=== PATIENT | male | born 1980 | race Caucasian/White ===

== ENCOUNTER 2017-02-16 13:53 | Emergency (ER) | payer MEDICAID ==
[~2017-02-16] VITALS: Ht 162.6 cm; Wt 92.5 kg
[2017-02-16 14:08] VITALS: Ht 162.6 cm; Wt 92.5 kg
[2017-02-16] MEDS ORDERED: TETRACAINE 0.5% 4 ML OPH LEFT EYE SCH (15:00)
[2017-02-16] MEDS ORDERED: FLUORESCEIN STRIP LEFT EYE ONE (15:00)
[2017-02-16] MEDS ORDERED: POLY10DR19 LEFT EYE (15:30)
[2017-02-16] MEDS ORDERED: OPHTHALMIC IRRIG SOLUTION 120 ML ONE (15:34)
--- NOTE | 2017-02-16 15:38 | ERD ---
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 Reports that he has been scratching his left eye due to the irritation. Denies wearing any contacts or glasses. Denies any blurred vision or vision loss. States that he still has some residual effects of dust or drywall in his left eye but tried to remove with water. Denies any fever, chills, headache, nausea, vomiting. ROS All systems reviewed and are negative except as per history of present illness. Medications Home Meds Active Scripts Polymyxin B Sulfate-TMP* (Polymyxin B-TMP Eye Drops*) 10 Ml Drops, 1 DROP LEFT EYE QID for 7 Days, EA Prov:GERARDO GOMEZ PA-C 02/16/17 Allergies Allergies: Coded Allergies: No Known Allergy (Unverified , 05/26/14) PMhx/Soc History of Surgery: No Anesthesia Reaction: No Hx Neurological Disorder: No Hx Respiratory Disorders: No Hx Cardiac Disorders: No Hx Psychiatric Problems: No Hx Miscellaneous Medical Probl: No Hx Alcohol Use: Yes Hx Substance Use: No Hx Tobacco Use: No Smoking Status: Former smoker Physical Exam Vitals Vital Signs Date Time Temp Pulse Resp B/P Pulse Ox O2 Delivery O2 Flow Rate FiO2 02/16/17 14:08 92.5 63 18 119/67 97 Physical Exam Const: Tgg-[id number]-kuznwuwel, well-nourished. In no acute distress. Head: Atraumatic, normocephalic Eyes: Right normal conjunctiva without injection. Left conjunctiva with slight injection noted. No foreign bodies noted. No purulent discharge. PERRLA. EOMI ENT: Normal external ear. Ear canal without erythema. Tympanic membrane pearly dubose without effusion or bulging. Nasal canal clear with normal turbinates. Moist oropharynx without tonsillar exudates. Non-erythematous pharynx. Uvula midline. No drooling. No trismus. Neck: No cervical midline tenderness. Full range of motion. No meningismus. No cervical lymphadenopathy. No JVD. Resp: Clear to auscultation bilaterally. No wheezing, rhonchi, rales, or crackles. No accessory muscle use. No retractions. Cardio: Regular rate and rhythm. No murmurs, rubs or gallops. Abd: Soft, non tender, non distended. Normal bowel sounds. No palpable masses. No rebound tenderness. No guarding. Negative McBurney's Point. Negative Freeman's Sign. Skin: Normal skin turgor. No petechiae or rashes Back: No midline tenderness. No CVA tenderness. Ext: No cyanosis, or edema. Distal pulses intact bilaterally. Neur: Awake and alert. Normal gait. Normal coordination. Cranial Nerves II- VII intact. Normal finger to nose. Muscle strength 5/5. Sensation intact. Psych: Normal Mood and Affect Results 24 hrs Current Medications Medications (Trade) Dose Ordered Sig/Lizzeth Route PRN Reason Start Time Stop Time Status Last Admin Dose Admin Tetracaine HCl (Tetracaine 0.5% Steri-Unit Kate) 1 drop ONCE LEFT EYE 02/16/17 15:00 02/16/17 16:29 DC Fluorescein Sodium (Whyle-F-Ootio) 1 strip ONCE ONCE LEFT EYE 02/16/17 15:00 02/16/17 15:01 DC Irrigating Solution (Eye Wash) 1 applic ONCE ONCE LEFT EYE 02/16/17 16:00 02/16/17 16:01 DC Irrigating Solution (Eye Wash) 1 applic STK-MED ONCE .ROUTE 02/16/17 15:34 02/16/17 15:35 DC Procedures/MDM 36-year-old male patient with a significant past medical history presents the ED complaining of left eye irritation due to possible residual drywall that may have gotten into his left eye. Patient did not wear protective eyeglasses. Patient is afebrile nontoxic appearing. Patient has normal vital signs. Eye Exam w/ Wood's lamp: Visual Acuity: L 20/50 R 20/70 Bilateral 20/30 Visual Baeza: Intact in all four quadrants bilaterally Lac ducts/glands: No swelling Lids w/ evertion: Normal, no foreign body Conj/Social Circle: Clear, slight inferior linear 1 cm corneal fluorescein uptake. No Aakash's sign. Patient's ocular symptoms have stabilized while they have been evaluated in the department and are appropriate for outpatient work up. Patient may have slight corneal abrasion vs. ulcer noted of left eye. Low suspicion for ruptured globe , retinal detachment, periorbital cellulitis, acute angle closure glaucoma, deep space infection, iritis, traumatic hyphema, conjunctivitis, subconjunctival hemorrhage, pterygium, hypopyon, blepharitis, hordeolum, chalazion, or other emergent conditions. Strictly instructed patient to follow up with an synthetic filament spinner within 24 hours. Instructed patient to return to the ED for any worsening symptoms. Patient is hemodynamically stable. Patient's questions were answered. Patient understood and agreed with discharge plan. Discharge medications: Polytrim Instructed patient to return to the ED sooner for any worsening symptoms. Patient's questions were answered. Patient understood and agreed with discharge plan. Patient discharged stable. Departure Diagnosis: Primary Impression: Left eye injury Encounter type: initial encounter Qualified Code: S05.92XA - Left eye injury , initial encounter Condition: Stable Patient Instructions: Corneal Injury Referrals: [facility] YOU HAVE RECEIVED A MEDICAL SCREENING EXAM AND THE RESULTS INDICATE THAT YOU DO NOT HAVE A CONDITION THAT REQUIRES URGENT TREATMENT IN THE EMERGENCY DEPARTMENT. FURTHER EVALUATION AND TREATMENT OF YOUR CONDITION CAN WAIT UNTIL YOU ARE SEEN IN YOUR DOCTORS OFFICE WITHIN THE NEXT 1-2 DAYS. IT IS YOUR RESPONSIBILITY TO MAKE AN APPOINTMENT FOR FOLOW-UP CARE. IF YOU HAVE A PRIMARY DOCTOR --you should call your primary doctor and schedule an appointment IF YOU DO NOT HAVE A PRIMARY DOCTOR YOU CAN CALL OUR PHYSICIAN REFERRAL HOTLINE AT IF YOU CAN NOT AFFORD TO SEE A PHYSICIAN YOU CAN CHOSE FROM THE FOLLOWING [facility] CLINICS [facility] [address] [facility]. [facility] [address] [facility] [facility] [address] [facility] [facility] [address] [facility] [facility] [address] [facility]. [facility]. [address] [facility]. [facility] YOU HAVE RECEIVED A MEDICAL SCREENING EXAM AND THE RESULTS INDICATE THAT YOU DO NOT HAVE A CONDITION THAT REQUIRES URGENT TREATMENT IN THE EMERGENCY DEPARTMENT. FURTHER EVALUATION AND TREATMENT OF YOUR CONDITION CAN WAIT UNTIL YOU ARE SEEN IN YOUR DOCTORS OFFICE WITHIN THE NEXT 1-2 DAYS. IT IS YOUR RESPONSIBILITY TO MAKE AN APPOINTMENT FOR FOLOW-UP CARE. IF YOU HAVE A PRIMARY DOCTOR --you should call your primary doctor and schedule and appointment IF YOU DO NOT HAVE A PRIMARY DOCTOR YOU CAN CALL OUR PHYSICIAN REFERRAL HOTLINE AT . IF YOU CAN NOT AFFORD TO SEE A PHYSICIAN YOU CAN CHOSE FROM THE FOLLOWING [facility] INSTITUTIONS: [facility] [address] [place] [address] [facility] [address] [place] [address] [facility] + [facility] [address] [place] [address] [facility] URGENT CARE/SPECIALTIES Additional Instructions: FOLLOW UP WITH OPTHALMOLOGIST WITHIN 24 HOURS.Return to this facility if you are not improving as expected - vision loss, fever, etc. GERARDO GOMEZ PA-C Feb 16, 2017 15:38
[2017-02-16] MEDS ORDERED: OPHTHALMIC IRRIG SOLUTION 120 ML LEFT EYE ONE (16:00)
== END 2017-02-16 16:29 | disposition home or self-care (01) ==
LOC: FTE 13:53
DX: S05.92XA Unspecified injury of left eye and orbit, initial encounter (principal); W20.8XXA Other cause of strike by thrown, projected or falling object, initial encounter; Y92.9 Unspecified place or not applicable; Z87.891 Personal history of nicotine dependence
CPT/HCPCS: Z7502; Z7610; 99283

== ENCOUNTER 2017-05-01 10:56 | Emergency (ER) | payer MEDICAID ==
[~2017-05-01] VITALS: Ht 180.3 cm; Wt 98.6 kg
[~2017-05-01 10:56] MED LIST: POLY10DR19 LEFT EYE
[2017-05-01 10:59] VITALS: Ht 180.3 cm; Wt 98.6 kg
[2017-05-01] MEDS ORDERED: IBUPROFEN 600 MG TAB PO ONE (11:30)
[2017-05-01] MEDS ORDERED: IBUP-1542 PO (12:43)
[2017-05-01] MEDS ORDERED: PHEN177S43 MT (12:43)
[2017-05-01 12:57] VITALS: BP 115/67; PULSE 72; RESP 19; TEMP 98.2
--- NOTE | 2017-05-01 13:01 | ERD ---
ER Documentation Chief Complaint Chief Complaint sore throat x 2 weeks HPI 36-year-old male patient with no significant past medical history presents to the ED complaining of sore throat and throat pain that started intermittently for 2 weeks. States that his daughter is also sick with similar symptoms. Reports that he has been next without relief of his symptoms. States that his throat feels clogged. Denies swallowing or aspirating any foreign bodies. Rates his pain a 7 out of 10. States that he is coughing to clear his throat but did not actually have a cough. Denies any fever, chills, chest pain, shortness of breath, wheezing, abdominal pain, nausea, vomiting. ROS All systems reviewed and are negative except as per history of present illness. Medications Home Meds Active Scripts Phenol* (Chloraseptic* [place]) 177 Ml [place].pump, 2 SPRAY MT Q2H Y for SORE THROAT, #1 BOTTLE Prov:GERARDO GOMEZ PA-C 05/01/17 Ibuprofen* (Motrin*) 600 Mg Tab, 600 MG PO Q6, #20 TAB Prov:GERARDO GOMEZ PA-C 05/01/17 Polymyxin B Sulfate-TMP* (Polymyxin B-TMP Eye Drops*) 10 Ml Drops, 1 DROP LEFT EYE QID for 7 Days, EA Prov:GERARDO GOMEZ PA-C 02/16/17 Allergies Allergies: Coded Allergies: No Known Allergy (Unverified , 05/01/17) PMhx/Soc Medical and Surgical Hx: pt denies Medical Hx, pt denies Surgical Hx History of Surgery: No Anesthesia Reaction: No Hx Neurological Disorder: No Hx Respiratory Disorders: No Hx Cardiac Disorders: No Hx Psychiatric Problems: No Hx Miscellaneous Medical Probl: No Hx Alcohol Use: Yes (social) Hx Substance Use: No Hx Tobacco Use: No Smoking Status: Never smoker Physical Exam Vitals Vital Signs Date Time Temp Pulse Resp B/P Pulse Ox O2 Delivery O2 Flow Rate FiO2 05/01/17 12:57 98.2 72 19 115/67 100 Room Air 05/01/17 10:59 97.9 77 18 137/62 96 Physical Exam Const: Laj-ztm-ehyqmkisn, well-nourished. In no acute distress. Head: Atraumatic, normocephalic Eyes: Normal Conjunctiva without injection. No purulent discharge. PERRL. EOMI ENT: Normal external ear. Ear canal without erythema. Tympanic membrane pearly dubose without effusion or bulging. Nasal canal clear with normal turbinates. Moist oropharynx without tonsillar exudates. Erythematous posterior pharynx. Uvula midline. No drooling. No trismus. Neck: Full range of motion. No meningismus. No cervical lymphadenopathy. Resp: Clear to auscultation bilaterally. No wheezing, rhonchi, rales, or crackles. No accessory muscle use. No retractions. Cardio: Regular rate and rhythm. No murmurs, rubs or gallops. Abd: Soft, non tender, non distended. Normal bowel sounds. No palpable masses. No rebound tenderness. No guarding. Skin: No petechiae or rashes Back: No midline tenderness. No CVA tenderness. Ext: No cyanosis, or edema. Neur: Awake and alert. Psych: Normal Mood and Affect Results 24 hrs Current Medications Medications (Trade) Dose Ordered Sig/Lizzeth Route PRN Reason Start Time Stop Time Status Last Admin Dose Admin Ibuprofen (Motrin) 600 mg ONCE ONCE PO 05/01/17 11:30 05/01/17 11:31 DC 05/01/17 11:23 Procedures/MDM 36-year-old male patient with no significant past medical history presents to the ED complaining of throat pain that started intermittently for 2 weeks. Patient is afebrile and nontoxic-appearing. Patient has normal vital signs. Rapid strep test was ordered to further evaluate patient. Negative rapid strep. Pending throat culture. Differentials include viral pharyngitis. Patient's physical exam include lungs which were clear to auscultation and a normal pulse oximetry. Bilateral ears pearly cordova. No tenderness to palpation of tragus or mastoid. Low suspicion for mastoiditis, otitis externa, otitis media. Patient is speaking in full sentences. There is a low suspicion for pneumonia, epiglottitis, croup, sinusitis, peritonsillar abscess, hands foot mouth disease, Angelo's angina, retropharyngeal abscess, meningitis, sepsis, acute abdomen or other emergent conditions. Discharge medications: Chloraseptic spray, Ibuprofen Follow up with primary care physician in 1-2 days. Instructed patient to return to the ED sooner for any worsening symptoms. Patient's questions were answered. Patient understood and agreed with discharge plan. Patient discharged stable. Departure Diagnosis: Primary Impression: Throat pain Condition: Stable Patient Instructions: When You Have a Sore Throat, Self-Care for Sore Throats, Pharyngitis, Report Pending Referrals: [facility] YOU HAVE RECEIVED A MEDICAL SCREENING EXAM AND THE RESULTS INDICATE THAT YOU DO NOT HAVE A CONDITION THAT REQUIRES URGENT TREATMENT IN THE EMERGENCY DEPARTMENT. FURTHER EVALUATION AND TREATMENT OF YOUR CONDITION CAN WAIT UNTIL YOU ARE SEEN IN YOUR DOCTORS OFFICE WITHIN THE NEXT 1-2 DAYS. IT IS YOUR RESPONSIBILITY TO MAKE AN APPOINTMENT FOR FOLOW-UP CARE. IF YOU HAVE A PRIMARY DOCTOR --you should call your primary doctor and schedule an appointment IF YOU DO NOT HAVE A PRIMARY DOCTOR YOU CAN CALL OUR PHYSICIAN REFERRAL HOTLINE AT IF YOU CAN NOT AFFORD TO SEE A PHYSICIAN YOU CAN CHOSE FROM THE FOLLOWING [facility] [address] [facility] [address] [facility] [address] [facility] [address] [facility] [address] [facility]. [facility] [address] [facility] YOU HAVE RECEIVED A MEDICAL SCREENING EXAM AND THE RESULTS INDICATE THAT YOU DO NOT HAVE A CONDITION THAT REQUIRES URGENT TREATMENT IN THE EMERGENCY DEPARTMENT. FURTHER EVALUATION AND TREATMENT OF YOUR CONDITION CAN WAIT UNTIL YOU ARE SEEN IN YOUR DOCTORS OFFICE WITHIN THE NEXT 1-2 DAYS. IT IS YOUR RESPONSIBILITY TO MAKE AN APPOINTMENT FOR FOLOW-UP CARE. IF YOU HAVE A PRIMARY DOCTOR --you should call your primary doctor and schedule and appointment IF YOU DO NOT HAVE A PRIMARY DOCTOR YOU CAN CALL OUR PHYSICIAN REFERRAL HOTLINE AT . IF YOU CAN NOT AFFORD TO SEE A PHYSICIAN YOU CAN CHOSE FROM THE FOLLOWING [facility]: [facility] [address] [place] [address] [facility] [address] [place] [address] [facility] [address] [address] Additional Instructions: Call your primary care doctor TOMORROW for an appointment during the next 2-3 days.See the doctor sooner or return here if your condition worsens before your appointment time. GERARDO GOMEZ PA-C May 01, 2017 13:01 GERARDO GOMEZ PA-C May 01, 2017 13:01
== END 2017-05-01 12:57 | disposition home or self-care (01) ==
LOC: FTE 10:56
DX: R07.0 Pain in throat (principal)
CPT/HCPCS: 87070; 87880; Z7502; Z7610; 99283